=== PATIENT | female | born 1945 | race Caucasian/White ===

== ENCOUNTER 2018-01-03 09:20 | Inpatient (IN) | payer MEDICARE, MEDICAID ==
[2018-01-03] MEDS ORDERED: Sodium Chloride 0.9% 1,000 ML IV ONE (09:29)
[2018-01-03 10:19] LABS: % EOSINOPHILS 1.9 % (0.0-5.0); % LYMPHOCYTES 23.1 % (20.0-50.0); % MONOCYTES 5.2 % (2.0-10.0); % NEUTROPHILS 69.8 % (40.0-80.0); EOSINOPHILE ABSOLUTE 0.2 Th/cmm (0.1-0.4); HEMATOCRIT 39.6 % (41.0-60); HEMOGLOBIN 13.6 gm/dL (12-16); LYMPHOCYTE ABSOLUTE 2.1 Th/cmm (1.5-3.0); MEAN CORPUSCULAR HEMOGLOBIN 29.8 pg (27.0-31.0); MEAN CORPUSCULAR HGB CONC 34.3 pg (28.0-36.0); MEAN PLATELET VOLUME 7.4 fl; MONOCYTE ABSOLUTE 0.5 Th/cmm (0.3-1.0); NEUTROPHILE ABSOLUTE 6.1 Th/cmm (1.8-8.0); PLATELET COUNT 339 Th/cmm (150-400); RED BLOOD COUNT 4.55 Mil/cmm (3.80-5.20); WHITE BLOOD COUNT 8.9 Th/cmm (4.8-10.8)
[2018-01-03 10:24] LABS: INR 0.97 (0.5-1.4); PROTHROMBIN TIME (TEST) 10.1 SECONDS (9.5-11.5)
[2018-01-03 10:39] LABS: ALB/GLOB RATIO 1.5 (1.0-1.8); ALKALINE PHOSPHATASE 89 U/L (34-104); ANION GAP 11.1 (7.0-16.0); BILIRUBIN,TOTAL 0.3 mg/dL (0.3-1.0); BUN - UREA NITROGEN 16 mg/dL (7-25); CALCIUM SERUM 9.5 mg/dL (8.6-10.3); CARBON DIOXIDE 24.8 mEq/L (21.0-31.0); CHLORIDE 104 mEq/L (98-107); CREATININE - SERUM 0.9 mg/dL (0.6-1.2); CREATININE KINASE 45 U/L (30-223); GLUCOSE 96 mg/dL (70-105); POTASSIUM SERUM 3.9 mEq/L (3.5-5.1); SGOT 13 U/L (13-39); SGPT/ALT 12 U/L (7-52); SODIUM SERUM 136 mEq/L (136-145); TOTAL PROTEIN,SERUM 6.7 gm/dL (6.0-8.3)
[2018-01-03 10:40] LABS: AMYLASE SERUM 42 U/L (29-103); LIPASE 37 U/L (11-82)
[2018-01-03 10:40] LABS: URINE SOURCE MIDSTREAM
[2018-01-03 10:46] LABS: URINE BILIRUBIN NEGATIVE (NEGATIVE); URINE BLOOD NEGATIVE (NEGATIVE); URINE GLUCOSE (UA) NEGATIVE (NEGATIVE); URINE KETONE NEGATIVE (NEGATIVE); URINE LEUKOCYTE ESTERASE NEGATIVE (NEGATIVE); URINE NITRATE NEGATIVE (NEGATIVE); URINE PROTEIN NEGATIVE (NEGATIVE); URINE UROBILINOGEN 0.2 E.U./dL (0.2 - 1.0)
--- NOTE | 2018-01-03 10:46 | ED Physician Chart ---
ED Chief Complaint/HPI - Patient Information Date Seen:: 01/03/18 Time Seen:: 09:20 Chief Complaint:: Weakness History of Present Illness:: onset x 3 days of weakness, poor oral intake, and failure to thrive; no report of trauma, H/As, neck pain, C/P, SOB, Abd. Pain, A/N/V/D/C, fever, chills, or urinary s/s Allergies:: Allergies Allergy/AdvReac Type Severity Reaction Status Date / Time No Known Allergies Allergy Verified 01/03/18 09:31 Vitals:: Vital Signs - 8 hr 01/03/18 09:20 Temp 98.0 F HR 70 RR 16 BP 121/67 O2 Sat % 98 Historian:: Patient, EMS Review:: Nurse's Note Reviewed, Old Chart Reviewed, EMS run form Reviewed ED Review of Systems - Review of Systems General/Constitutional: No fever, No chills, No weight loss, Weakness, No diaphoresis, No edema, No loss of appetite Skin: No skin lesions, No rash, No bruising Head: No headache, No light-headedness Eyes: No loss of vision, No pain, No diplopia ENT: No earache, No nasal drainage, No sore throat, No tinnitus Neck: No neck pain, No swelling, No thyromegaly, No stiffness, No mass noted Cardio Vascular: No chest pain, No palpitations, No PND, No orthopnea, No edema Pulmonary: No SOB, No cough, No sputum, No wheezing GI: No nausea, No vomiting, No diarrhea, No pain, No melena, No hematochezia, No constipation, No hematemesis G/U: No dysuria, No frequency, No hematuria, No nacturia Refrigeration Mechanic Helper: No vaginal discharge, No abnormal vaginal bleed, No contraction Musculoskeletal: No bone or joint pain, No back pain, No muscle pain Endocrine: No polyuria, No polydipsia Psychiatric: Prior psych history, Depression, Anxiety, No suicidal ideation, No homicidal ideation, No auditory hallucination, No visual hallucination Hematopoietic: No bruising, No lymphadenopathy Allergic/Immuno: No urticaria, No angioedema Neurological: No syncope, No focal symptoms, Weakness, No paresthesia, No headache, No seizure, No dizziness, Confusion, No vertigo ED Past Medical History - Past Medical History Obtainable: Yes Past Medical History: HTN, CAD, Dyslipidemia, PUD/GERD, Arthritis, Dementia Family History: HTN Social History: Non Smoker, No Alcohol, No Drug Use, Single, Care Facility Surgical History: None Psychiatricy History: Depression, Schizophrenia, Dementia Medication: Reviewed Family Medical History - Family Member Mother History Unknown: Yes ED Physical Exam - Physical Examination General/Constitutional: Awake, Well-developed, well-nourished, Alert, No distress, GCS 15, Non-toxic appearing, Ambulatory Head: Atraumatic Eyes: Lids, conjuctiva normal, PERRL, EOMI Skin: Nl inspection, No rash, No skin lesions, No ecchymosis, Well hydrated, No lymphadenopathy ENMT: External ears, nose nl, Nasal exam nl, Lips, teeth, gums nl Neck: Nontender, Full ROM w/o pain, No JVD, No nuchal rigidity, No bruit, No mass, No stridor Respiratory: Nl effort/Exclusion, Clear to Auscultation, No Wheeze/Rhonchi/Rales Cardio Vascular: RRR, No murmur, gallop, rubs, NL S1 S2, Carotid/Femoral/Distal pulses equal bilaterally GI: No tenderness/rebounding/guarding, No organomegaly, No hernia, Normal BS's, Nondistended, No mass/bruits, No McBurney tenderness : No CVA tenderness Extremities: No tenderness or effusion, Full ROM, normal strength in all extremities, No edema, Normal digits & nails Neuro/Psych: Alert/oriented, DTR's symmetric, Normal sensory exam, Normal motor strength, Judgement/insight normal, Mood normal, Normal gait, No focal deficits Other Neuro/Psych comments:: + Psychomotor Agitation; Mood/Affect: Labile; no SIs; Misc: Normal back, No paraspinal tenderness ED Labs/Radiology/EKG Results - Lab Results Results: Laboratory Tests 01/03/18 01/03/18 09:40 09:40 WBC 8.9 RBC 4.55 Hgb 13.6 Hct 39.6 L MCV 87.0 MCH 29.8 MCHC Differential 34.3 RDW 14.0 Plt Count 339 MPV 7.4 Neutrophils % 69.8 Lymphocytes % 23.1 Monocytes % 5.2 Eosinophils % 1.9 Basophils % 0.0 PT 10.1 INR 0.97 PTT (Actin FS) 26.1 Comments:: Reviewed - EKG Interpretations EKG Time:: 09:58 Rate & Rhythm: 69; NSR Comments:: non-specific st-t changes ED Septic Shock - . Is Septic Shock (SBP<90, OR Lactate>4 mmol\L) present?: No - <6hrs of presentation: Vital Signs: Vital Signs - 8 hr 01/03/18 09:20 Temp 98.0 F HR 70 RR 16 BP 121/67 O2 Sat % 98 ED Reassessment (Disposition) - Reassessment Reassessment Condition:: Improved - Diagnosis Diagnosis:: Poor Oral Intake; Weakness; Alzheimer's Disease; Failure to Thrive; Dementia; Schizo-Affective Disorder; Psychosis; Medical Clearance; Depression; Bipolar Disorder - Aftercare/Follow up Instructions Aftercare/Follow-Up Instructions:: Counseled pt regarding lab results/diagnosis & need follow up, Counseled pt & family regarding lab results/diagnosis & need follow up - Patient Disposition Discharge/Transfer:: Acute Care w/in this hosp Admitted to:: [facility] Condition at Disposition:: Stable, Improved
[2018-01-03 10:47] LABS: TROP I < 0.01 ng/mL (0.01-0.05)
[2018-01-03 10:48] LABS: URINE CLARITY CLEAR (CLEAR); URINE COLOR YELLOW
[2018-01-03] MEDS ORDERED: Haloperidol Lactate 5 mg/mL 1mL Vial ONE (10:50)
[2018-01-03] MEDS ORDERED: Haloperidol Lactate 5 mg/mL 1mL Vial IVP ONE (10:50)
[2018-01-03 10:54] LABS: URINE MICROSCOPIC INDICATED? NO
[2018-01-03 12:34] LABS: ACETAMINOPHEN < 10.0 ug/mL (10.0-30.0); SALICYLATES (ASPIRIN) < 25.0 mg/L (30.0-100.0)
[2018-01-03 15:17] VITALS: BP 152/71
[2018-01-03 16:14] LABS: CHOLESTEROL 193 mg/dL (<200); HDL -HIGH DENSITY LIPOPROTEIN 32 mg/dL (23-92); TRIGLYCERIDES 397 mg/dL (<150)
[2018-01-03] MEDS ORDERED: Maalox 30 mL Cup PO PRN (16:52)
[2018-01-03] MEDS ORDERED: Magnesium Hydroxide (MOM) 30 mL UDC PO PRN (16:52)
[2018-01-04] MEDS: Levothyroxine 0.05 Mg Tab PO SCH (06:52)
[2018-01-04] MEDS: Multivitamin Tab PO SCH (08:23)
--- NOTE | 2018-01-04 10:33 | History & Physical ---
ADMIT DATE: 01/03/2018 INTERNAL MEDICINE CONSULTATION The patient is a 72-year-old female, patient of mine. PAST MEDICAL HISTORY: Significant for hypothyroidism, coronary artery disease, peptic ulcer disease, gastritis, arthritis, osteoporosis, and dementia. SOCIAL HISTORY: No prior history of smoking or alcohol. FAMILY HISTORY: Not available. OBSTETRIC HISTORY: P2+0, menses are postmenopausal. REVIEW OF SYSTEMS: No chest pain, no shortness of breath, no nausea, no vomiting. The patient advanced psychosis, dementia. PHYSICAL EXAMINATION: GENERAL: Average female in no obvious respiratory distress. VITAL SIGNS: Include a blood pressure of 110/70, heart rate 80, respiration rate of 18. SKIN: Show no cellulitis. HEENT: Normal conjunctivae. NECK: Supple. LUNGS: Clear. HEART: First and second heard sound normal. No gallop. Systolic present. ABDOMEN: Soft, bowel sounds present. EXTREMITIES: Show arthritis. NEUROLOGIC: The patient has dementia. LABS: Include white count 8.9, hemoglobin 13.6, hematocrit 39.6, platelet count 339. Sodium 136, potassium 3.9, chloride 104, bicarb 24.8, BUN 16, creatinine 0.9, blood sugar 96. ADMITTING DIAGNOSES: Include hypothyroidism, coronary artery disease, peptic ulcer disease, gastritis, arthritis, osteoporosis, dementia, and hyperlipidemia, triglycerides 397. CURRENT MEDICINES: Include milk of magnesia, Synthroid 50 mcg daily, vitamin D3, Maalox, Tylenol. JOB# [id number]
--- NOTE | 2018-01-04 10:36 | Progress Notes ---
DATE: 01/04/2018 INTERNAL MEDICINE CONSULTATION FOLLOWUP CHIEF COMPLAINT: No new symptoms. No shortness breath. No nausea, no vomiting, no melena, no hematochezia. No recent falls. OBJECTIVE: VITAL SIGNS: Stable. LUNGS: Clear. HEART: First and second heart sounds are normal. No gallop. Systolic present. ABDOMEN: Soft. Bowel sounds are present and good. EXTREMITIES: Show arthritis. NEUROLOGIC: The patient has dementia. MEDICAL DIAGNOSES: Remain the same, hypothyroidism, coronary artery disease, peptic ulcer disease, arthritis, osteoporosis, and dementia. TREATMENT PLAN: Continue current medical management. Psych consult reviewed. [facility]# [id number]
[2018-01-05] MEDS: Levothyroxine 0.05 Mg Tab PO SCH (06:50)
--- NOTE | 2018-01-05 10:02 | Progress Notes ---
DATE: 01/05/2018 INTERNAL MEDICINE CONSULTATION FOLLOWUP SUBJECTIVE: The patient is a 72-year-old female. Current medical problems include hypothyroidism, coronary artery disease, peptic ulcer disease, arthritis, osteoporosis. CHIEF COMPLAINT: No new symptoms. OBJECTIVE: VITAL SIGNS: Stable. LUNGS: Clear. HEART: First and second heart sounds normal. No gallops. Systolic present. ABDOMEN: Soft. Bowel sounds are present and good. EXTREMITIES: Show arthritis. NEUROLOGIC: The patient has dementia. CURRENT MEDICAL DIAGNOSES: Remain the same. PLAN: Continue current medical management. Psych consult reviewed. JOB# [id number]
[2018-01-05] MEDS: Multivitamin Tab PO SCH (12:46)
[2018-01-06] MEDS: Levothyroxine 0.05 Mg Tab PO SCH (06:30)
[2018-01-06] MEDS: Multivitamin Tab PO SCH (09:52)
--- NOTE | 2018-01-06 19:12 | Progress Notes ---
DATE: 01/06/2018 INTERNAL MEDICINE CONSULTATION FOLLOWUP SUBJECTIVE: The patient is a 72-year-old female seen in Geropsych Unit. CURRENT MEDICAL PROBLEMS: Include hypothyroidism, coronary artery disease, peptic ulcer disease, gastritis, arthritis, osteoporosis. CHIEF COMPLAINT: No chest pain, no shortness of breath, no nausea, no vomiting. No recent falls. OBJECTIVE: VITAL SIGNS: Stable. LUNGS: Clear. HEART: First and second heart sounds are normal. No gallop. Systolic present. ABDOMEN: Soft. Bowel sounds are present and good. EXTREMITIES: Show arthritis. NEUROLOGIC: The patient has no focal motor deficit. MEDICAL DIAGNOSES: Include hypothyroidism, coronary artery disease, peptic ulcer disease, gastritis, arthritis, osteoporosis. PLAN: Continue current medical management. Psych consult reviewed. JOB# [id number]
[2018-01-07] MEDS: Levothyroxine 0.05 Mg Tab PO SCH (06:34)
[2018-01-07] MEDS: Multivitamin Tab PO SCH (09:29)
--- NOTE | 2018-01-07 21:25 | Psychiatric Evaluation ---
DATE OF SERVICE: PSYCHIATRIC INITIAL EVALUATION AND MENTAL STATUS EXAM PATIENT'S AGE: 72. SEX: Female. PHYSICIAN: Nimesh Mccoy M.D., M.P.H. CHIEF COMPLAINT: Agitation and generalized weakness and poor intake. HISTORY OF PRESENT ILLNESS: The patient is a 72-year-old female was transferred to the hospital from [facility] in [place]. The patient has been experienced generalized weakness and has not been eating or drinking. She also has been agitated and she hit one staff. She also has been refusing medicine. The patient also has been feeling weak and has generalized weakness. The patient again has a diagnosis of failure to thrive. PAST PSYCHIATRIC HISTORY: No history of psychiatric problems. PAST MEDICAL HISTORY: The patient has a history of urinary tract infection as well as failure to thrive and coronary artery disease. The patient also has hyperlipidemia and peptic ulcer disease. FAMILY HISTORY: Hypertension. SOCIAL HISTORY: The patient lives in [facility] in [place]. No known alcohol or drug use. The patient does not smoke cigarette or use drugs. ALLERGIES: No known allergies. MENTAL STATUS EXAMINATION: The patient appears her stated age. Anxious. Irritable mood. Does not answer much of the questions. Lack of motivations. The patient seems to be tired and weak at this time. The patient did not answer questions regarding hallucinations or delusions or regarding suicide or homicide. The patient is alert, but seems to be disoriented to time, place, person and situation. Impaired immediate and recent memory, but intact remote memory and remembered her date. Poor insight and poor judgment. ASSESSMENT: PRIMARY DIAGNOSIS: Depressive mood disorder, unspecified, with psychotic features. SECONDARY DIAGNOSIS: Dementia, moderate, with psychotic features. MEDICAL DIAGNOSES: Failure to thrive. Urinary tract infection. Coronary artery disease. TREATMENT PLAN: We will monitor the patient's behavior and condition closely. Also, we will discontinue Risperdal and will continue Seroquel. Also, we will monitor psychotropic medications closely. ESTIMATED LENGTH OF STAY: 5-7 days. THE PATIENT'S STRENGTHS AND WEAKNESSES: The patient's strength is not clear at this time. Weaknesses are ineffective coping. Also poor impulse control. AFTER DISCHARGE PLAN: Outpatient treatment and followup. We will continue as an outpatient. CRITERIA FOR DISCHARGE: The patient will not be psychotic and will stabilize psychotropic medications and will establish a treatment plan. [facility]# [id number]
--- NOTE | 2018-01-07 21:33 | Progress Notes ---
DATE: 01/05/2018 SUBJECTIVE: Chart reviewed and the patient interviewed. Also discussed the patient's condition with the staff and reviewed records and labs. The patient continued to be depressed and withdrawn with episodes of irritability. The patient also is still weak. She also has poor appetite. Otherwise, the patient is trying to answer questions. Also, she is trying to interact more. ASSESSMENT: The patient is still confused and depressed. TREATMENT PLAN: Continue to monitor behavior and condition closely. Also, continue adjusting psychotropic medications and followup. [facility]# [id number]
--- NOTE | 2018-01-07 21:43 | Progress Notes ---
DATE: 01/06/2018 SUBJECTIVE: Chart reviewed and the patient interviewed. Also discussed the patient's condition with the staff and reviewed records and labs. The patient is still forgetful and still easily irritable and easily agitated. The patient also still seems to be preoccupied. She also is forgetful. The patient also is trying to take off her clothes. The patient also is selectively mute. Otherwise, the patient still needs lots of redirections and she is still easily agitated. ASSESSMENT: The patient is still agitated. TREATMENT PLAN: Continue Seroquel in a dose of 50 mg 3 times a day and Remeron 15 mg at bedtime. Also, we will continue Ativan 1 mg on a p.r.n. basis and continue to follow up closely. JOB# [id number]
--- NOTE | 2018-01-07 22:02 | Progress Notes ---
DATE: 01/07/2018 SUBJECTIVE: Chart reviewed and the patient interviewed. Also discussed the patient's condition with the staff and reviewed records and labs. The patient is still selectively mute and she is still easily agitated and easily irritable. The patient also is interacting minimally with others and she still seems preoccupied. The patient also is still unable to follow directions and she is forgetful. Otherwise, the patient continued to comply with taking Seroquel and Remeron with no side effects. ASSESSMENT: The patient is still confused and is still agitated. TREATMENT PLAN: We will continue monitoring her behavior and her condition closely. Also, continue to work on behavioral modification and adjusting psychotropic medications. JOB# [id number]
--- NOTE | 2018-01-07 22:24 | Consultation ---
DATE OF CONSULTATION: 01/07/2018 INTERNAL MEDICINE CONSULTATION FOLLOWUP SUBJECTIVE: The patient is a 72-year-old female. Current medical problems include hypothyroidism, coronary artery disease, peptic ulcer disease, arthritis, and psychosis. CHIEF COMPLAINT: No new symptoms. OBJECTIVE: VITAL SIGNS: Stable. LUNGS: Clear. HEART: First and second heart sounds normal. No gallop. Systolic present. ABDOMEN: Soft, bowel sounds present. EXTREMITIES: Show arthritis. NEUROLOGIC: The patient has advanced dementia. MEDICAL DIAGNOSIS: Remains same. PLAN: Continue current medical management. Psych consult reviewed. JOB# [id number]
[2018-01-08] MEDS: Levothyroxine 0.05 Mg Tab PO SCH (06:39)
[2018-01-08] MEDS: Multivitamin Tab PO SCH (09:14)
--- NOTE | 2018-01-08 23:14 | Progress Notes ---
DATE: 01/08/[address] Mccoy. Case was discussed with staff of the patient and reviewed records. The patient is a 72-year-old female who was admitted on 01/03/2018 because of agitation and generalized weakness, poor insight. She came from the [facility] in [place]. The patient has been experiencing generalized weakness, refusing medication, feeling weak with failure to thrive. Also, she has urinary tract infection as well, coronary artery disease, has also hyperlipidemia, peptic ulcer disease. The patient continues to be anxious, irritable, not willing to participate in meaningful conversation. Continues to have poor insight about the whole situation. She is on Remeron 15 mg at bedtime, Seroquel 50 mg 3 times a day with no side effects, no sedation, no nausea, no extrapyramidal symptoms. We will continue outpatient group therapy, milieu therapy, and adjust medications as needed. JOB# [id number]
--- NOTE | 2018-01-09 02:20 | Progress Notes ---
DATE: 01/08/2018 INTERNAL MEDICINE CONSULTATION The patient is a 72-year-old female. CURRENT MEDICAL PROBLEMS: Include hypothyroidism, coronary artery disease, peptic ulcer disease, gastritis, arthritis, osteoporosis. CHIEF COMPLAINT: No chest pain, no short of breath, no nausea, no vomiting. OBJECTIVE: VITAL SIGNS: Stable. LUNGS: Clear. HEART: First and second heart sounds are normal. No gallops. Systolic present. ABDOMEN: Soft. Bowel sounds are present and good. EXTREMITIES: Show arthritis. NEUROLOGIC: The patient has dementia. MEDICAL DIAGNOSES: Include hypothyroidism, coronary artery disease, peptic ulcer disease, gastritis, arthritis, osteoporosis. PLAN: Continue current medical management. Psych consult reviewed. JOB# [id number]
[2018-01-09] MEDS: Levothyroxine 0.05 Mg Tab PO SCH (06:45)
[2018-01-09] MEDS: Multivitamin Tab PO SCH (10:20)
--- NOTE | 2018-01-09 17:04 | Progress Notes ---
DATE: 01/09/2018 Case was discussed with staff of the patient, reviewed records. The patient is isolate herself. Continues to be in her bed, not answering questions. Continues to be anxious, irritable, not able to take care of herself about in meaningful conversation. She is compliant with the medication with no side effects, no sedation or nausea, episode of failure to thrive. She is already on Remeron and no side effects with the medication, no sedation or nausea. We will continue outpatient group therapy, milieu therapy, and adjust medications as needed. JOB# [id number]
--- NOTE | 2018-01-09 23:38 | Progress Notes ---
DATE: 01/09/2018 INTERNAL MEDICINE CONSULTATION The patient is a 72-year-old female seen at [facility]. CURRENT MEDICAL PROBLEMS: Include hypothyroidism, coronary artery disease, peptic ulcer disease, gastritis, arthritis, osteoporosis. CHIEF COMPLAINT: No new symptoms. No acute infection. No vomiting or diarrhea. No melena, no hematochezia. On examination of the female in no obvious respiratory distress. OBJECTIVE: VITAL SIGNS: Stable. LUNGS: Clear. HEART: First and second heart sounds are normal. No gallop. Systolic present. ABDOMEN: Soft. Bowel sounds are present and good. EXTREMITIES: Show arthritis. NEUROLOGIC: The patient has dementia. MEDICAL DIAGNOSES: Include hypothyroidism, coronary artery disease, peptic ulcer disease, gastritis, arthritis, osteoporosis. PLAN: Continue current medical treatment. Psych consult reviewed. JOB# [id number]
[2018-01-10] MEDS: Levothyroxine 0.05 Mg Tab PO SCH (06:40)
[2018-01-10] MEDS: Multivitamin Tab PO SCH (09:52)
--- NOTE | 2018-01-10 19:45 | Progress Notes ---
DATE: 01/10/2018 INTERNAL MEDICINE CONSULTATION FOLLOWUP SUBJECTIVE: The patient is a 72-year-old female. CURRENT MEDICAL PROBLEMS: Include hypothyroidism, coronary artery disease, peptic ulcer disease, gastritis, arthritis, osteoporosis. No new symptoms. OBJECTIVE: VITAL SIGNS: Stable. LUNGS: Clear. HEART: First and second heart sound are normal. No gallops. Systolic present. ABDOMEN: Soft, minimal epigastric tenderness. Bowel sounds present. EXTREMITIES: Show arthritis. NEUROLOGIC: The patient has dementia. MEDICAL DIAGNOSES: Include hypothyroidism, coronary artery disease, peptic ulcer disease, gastritis, arthritis, osteoporosis. Continue current medical management. Psych consult reviewed. JOB# [id number]
--- NOTE | 2018-01-11 04:06 | Progress Notes ---
DATE: 01/10/2018 SUBJECTIVE: Chart reviewed and the patient interviewed. Also discussed the patient's condition with the staff and reviewed records and labs. The patient is sleepy and I tried to wake up the patient, but she was not able to wake up and she continued to sleep and when she was trying to respond, she was in angry and in irritable mood. The patient also is still restless and is still having problem with her mood. The patient also is having mood swings and anxiety. Otherwise, no major behavioral problems. ASSESSMENT: The patient seems to be sleepy and groggy with medications. TREATMENT PLAN: We will decrease Seroquel to 25 mg 3 times a day, Remeron to 7.5 at bedtime, and Ativan to 0.25 mg twice a day. Also, continue adjusting psychotropic medications and work on behavioral modification. JOB# [id number]
[2018-01-11] MEDS: Levothyroxine 0.05 Mg Tab PO SCH (06:49)
--- NOTE | 2018-01-11 07:49 | Progress Notes ---
DATE: SUBJECTIVE: Chart reviewed and the patient interviewed. Also discussed the patient's condition with the staff and reviewed records and labs. The patient continued to be confused and she is still in a depressed mood and isolative. The patient also is interacting minimally with others. She also is still slightly suspicious and paranoid. On the other hand today, the patient is answering questions more and she is less irritable and more alert. She also is compliant with taking her medications with no side effect. ASSESSMENT: The patient is less irritable and seems to be showing some improvement. TREATMENT PLAN: We will continue monitoring her condition and her behavior and continue adjusting psychotropic medications and work on her discharge plans. JOB# [id number]
[2018-01-11] MEDS: Multivitamin Tab PO SCH (11:23)
--- NOTE | 2018-01-11 23:27 | Progress Notes ---
DATE: 01/11/2018 INTERNAL MEDICINE CONSULTATION FOLLOWUP SUBJECTIVE: The patient is a 72-year-old female with past medical history significant for hypertension, coronary artery disease, peptic ulcer disease, gastritis, arthritis, osteoporosis. CHIEF COMPLAINT: No new symptoms. OBJECTIVE: VITAL SIGNS: Stable. LUNGS: Clear. HEART: First and second heart sound are normal. No gallop. Systolic present. ABDOMEN: Soft. Bowel sounds are present. EXTREMITIES: Show arthritis. NEUROLOGIC: The patient has dementia. MEDICAL DIAGNOSES: Remain the same. Continue current medical management. Psych consult reviewed. JOB# [id number]
[2018-01-12] MEDS: Levothyroxine 0.05 Mg Tab PO SCH (06:43)
[2018-01-12] MEDS: Multivitamin Tab PO SCH (09:42)
--- NOTE | 2018-01-12 19:15 | Discharge Summary ---
DATE OF DISCHARGE: 01/12/2018 AGE: 72. SEX: Female. PHYSICIAN: Dr. Mccoy. FINAL DIAGNOSIS: PRIMARY DIAGNOSIS: Depressive mood disorder, unspecified, with psychotic features. SECONDARY DIAGNOSIS: Dementia, moderate, with psychotic features. REASON FOR HOSPITALIZATION: The patient was admitted to the hospital because of generalized weakness as well as agitation and poor intake. HOSPITAL COURSE: The patient continued to be withdrawn and anxious. The patient also had episodes of agitation. The patient was also monitored closely because of her poor intake. She also at times was selectively mute and was increasingly irritable. The patient was given Remeron and the dose adjusted to 7.5 mg at bedtime and also Seroquel and the dose adjusted to 25 mg 3 times a day. Gradually, the patient's affect was brighter. The patient was less depressed and less irritable. She also was compliant with medications. Also, her food intake was most. She was not suicidal or homicidal, and she was discharged from the hospital. Physical exam of the patient showed no major medical problems. The patient had no major behavioral issues while in the hospital. AFTER DISCHARGE PLANS: The patient discharged from the hospital and returned to [facility], plans for treatment there. EXPECTED OUTCOME AFTER DISCHARGE: Fair if the patient continued to comply with taking her medications and follow up with discharge plans. [facility]# [id number]
--- NOTE | 2018-01-13 08:30 | Progress Notes ---
DATE: INTERNAL MEDICINE CONSULTATION FOLLOWUP SUBJECTIVE: The patient is a 72-year-old female. Current medical problems include hypothyroidism, coronary artery disease, peptic ulcer disease, arthritis, osteoporosis. CHIEF COMPLAINT: No new symptoms. No chest pain, no short of breath. No nausea, no vomiting, no fall. OBJECTIVE: VITAL SIGNS: Stable. LUNGS: Clear. HEART: First and second heart sounds normal. No gallop. Systolic present. ABDOMEN: Soft. Bowel sounds are good. EXTREMITIES: Show arthritis. NEUROLOGIC: The patient has dementia. TREATMENT PLAN: Continue current medical management. Psych consult reviewed. JOB# [id number]
--- NOTE | 2018-01-15 09:18 | Progress Notes ---
DATE: 01/14/2018 INTERNAL MEDICINE CONSULTATION FOLLOWUP SUBJECTIVE: The patient is a 72-year-old female. Current medical problems include hypothyroidism, coronary artery disease, peptic ulcer disease, arthritis, and osteoporosis. OBJECTIVE: VITAL SIGNS: Stable. LUNGS: Clear. HEART: First and second heart sounds normal. No gallop. Systolic present. ABDOMEN: Soft, minimal epigastric tenderness. Bowel sounds present and good. EXTREMITIES: Show arthritis. NEUROLOGIC: The patient has dementia. MEDICAL DIAGNOSIS: Remain same. PLAN: Continue current medical management. Psych consult reviewed. JOB# [id number]
== END 2018-01-12 15:20 | DRG 885 ==
LOC: ER 09:20 → GERO 14:00
PROVIDERS: ADMIT Psychiatry & Neurology Psychiatry; ATTEND Psychiatry & Neurology Psychiatry
DX: F32.3 Major depressive disorder, single episode, severe with psychotic features (principal); N39.0 Urinary tract infection, site not specified; F02.81 Dementia in other diseases classified elsewhere, unspecified severity, with behavioral disturbance; I25.10 Atherosclerotic heart disease of native coronary artery without angina pectoris; E03.9 Hypothyroidism, unspecified; M81.0 Age-related osteoporosis without current pathological fracture; E78.5 Hyperlipidemia, unspecified; M19.90 Unspecified osteoarthritis, unspecified site; K29.70 Gastritis, unspecified, without bleeding; R62.7 Adult failure to thrive; I10 Essential (primary) hypertension; K27.9 Peptic ulcer, site unspecified, unspecified as acute or chronic, without hemorrhage or perforation; G30.9 Alzheimer's disease, unspecified; K21.9 Gastro-esophageal reflux disease without esophagitis; Z82.49 Family history of ischemic heart disease and other diseases of the circulatory system
CPT/HCPCS: 36415-UA; 80053-TC; 80061-TC; 80320-TC; 80329-TC; 81003-TC; 82150-TC; 82550-TC; 83036-90; 83605; 83690-TC; 84443-TC; 84484-TC; 85025-TC; 85610-TC; 85730-TC; 86592-TC; 93005; 96374; 96375; J1200; J1630; J2060; Z7610